=== PATIENT | female | born 1965 | race Caucasian/White ===

== ENCOUNTER 2024-07-11 12:41 | Observation (INO) | payer MEDICARE, MEDICAID, SELFPAY ==
[2024-07-11] VITALS (25 sets, daily range): BP systolic 104–126; BP diastolic 55–72; PULSE 57–75; RESP 16–41; TEMP 36.1–37.1; O2SAT 86–99; BMI 23.7; BMI 22.2
--- NOTE | 2024-07-11 13:03 | DI.RAD.S_ITS ---
PROCEDURE: XR CHEST 1V INDICATIONS: Shortness of breath TECHNIQUE: One view of the chest was acquired. COMPARISON: None. FINDINGS: Surgical changes and devices: None. Lungs and pleura: Lungs are clear. No pleural effusions or pneumothorax. Mediastinum: Mediastinal contours appear normal. Heart size is normal. Bones and chest wall: No suspicious bony lesions. Overlying soft tissues appear unremarkable. IMPRESSION: No acute pulmonary process. Dictated by: Meli Dowling M.D. on 07/11/2024 at 13:41 Approved by: Meli Dowling M.D. on 07/11/2024 at 13:41
--- NOTE | 2024-07-11 13:03 | EKG_ITS ---
[address] [address] Test Date: 2024-07-11 Pat Name: Dwight Stokes Department: Room: Gender: Female Preparation Department Supervisor: MARITA : 1965 Requested By: Order Number: [id number] Reading MD: Jhonatan Hooper MD Measurements Intervals [place] Rate: 61 P: 60 MD: 140 QRS: 50 QRSD: 82 T: 43 QT: 470 QTc: 473 Interpretive Statements Normal sinus rhythm Electronically Signed On 07-11-2024 15:23:06 PDT by Jhonatan Hooper MD
[2024-07-11 13:31] LABS: Add Manual Diff / Slide Review NO; Basophils Absolute Auto 0 /uL (0-100); Basophils Percent Auto 0.5 % (0-2); Eosinophils Absolute Auto 700 /uL (0-450); Hematocrit 39.3 % (36-46); Hemoglobin 13.1 g/dL (12.0-16.0); Lymphocytes Absolute Auto 2100 /uL (1100-4500); Lymphocytes Percent Auto 24.9 % (25-40); Mean Corpuscular HGB Conc 33.3 % (30-36); Mean Corpuscular Hemoglobin 29.1 PG (26-34); Mean Corpuscular Volume 87.4 fL (80-100); Monocytes Absolute Auto 600 /uL (0-900); Monocytes Percent Auto 6.6 % (3-14); Neutrophils Absolute Auto 5100 /uL (1500-7000); Platelet Count 222 X10^3/uL (150-400); Red Blood Cell Count 4.49 X10^6/uL (4.0-5.2); Red Cell Distribution Width 14.6 % (11.6-14.8); White Blood Cell Count 8.4 X10^3/uL (4.5-11.0)
[2024-07-11 13:38] LABS: Prothrombin Time 11.3 SECONDS (9.4-12.5)
[2024-07-11 13:42] LABS: Alanine Aminotransferase 32 IU/L (<35); Albumin Globulin Ratio 1.3 (1.0-2.8); Alkaline Phosphatase 67 U/L (38-126); Aspartate Aminotransferase 46 IU/L (14-36); Bilirubin Total 0.3 mg/dL (0.2-1.3); Blood Urea Nitrogen 16 mg/dL (7-17); Calcium 8.9 mg/dL (8.4-10.2); Carbon Dioxide 33 mmol/L (22-32); Chloride 98 mmol/L (98-107); Estimated Glomerular Filt Rate > 60 mL/min (>60); Globulin 3.1 g/dL (1.7-4.1); Glucose 107 mg/dL (70-100); HEMOLYSIS < 15 (0-50); Lactate (Lactic Acid) 1.6 mmol/L (0.7-2.1); Potassium 3.6 mmol/L (3.4-5.1); Sodium 137 mmol/L (137-145); Total Protein 7.1 g/dL (6.3-8.2)
[2024-07-11 13:57] LABS: NT-proBNP (BNP-Adult 18+) 488 pg/mL (<125); Troponin I 0.023 ng/mL (0.01-0.034)
--- NOTE | 2024-07-11 15:11 | ED.GENADULT ---
HPI - General Adult General Chief complaint: Shortness of Breath/Dyspnea Stated complaint: Low O2 90% RA Time Seen by Provider: 07/11/24 15:10 Source: patient and EMS Mode of arrival: EMS Limitations: no limitations History of Present Illness HPI narrative: 58-year-old female history of substance abuse, tobacco use who presents with a hypoxia from [facility]. Patient's for report lives in [facility] her son found her down and Narcan her x2 she was transported to [facility] and [facility]. Sounds like she was seen there and then discharged. Patient states she has been on methadone she was states she takes it daily she gets it at [facility] like. States she was to use benzos and she occasionally uses meth but denies any recent benzodiazepine use or narcotics. Patient states she has not been told her oxygen has been low in the past. She states she was not told it was low at [facility]. Denies fevers or chills. No chest pain, no shortness of breath. Denies any nausea or vomiting. Denies any GI or urinary symptoms. No swelling of extremities. She notes she was recently had a cold. She states no medications besides methadone. States x3 for surgical history. Describes allergies to Demerol and Vicodin but isn't able to tell me what the allergy is. Does use tobacco regularly denies alcohol, denies substance use but did get Narcan yesterday. Related Data Allergies Allergy/AdvReac Type Severity Reaction Status Date / Time acetaminophen [From Vicodin] Allergy Verified 07/11/24 15:12 hydrocodone [From Vicodin] Allergy Verified 07/11/24 15:12 meperidine [From Demerol] Allergy Verified 07/11/24 15:12 Review of Systems Review of Systems ROS Unobtainable: All systems reviewed & are unremarkable except as noted in HPI and below Patient History Social History household members: significant other alcohol intake: never Smoking Status: Current every day smoker tobacco type: cigarettes Exam Narrative Exam Narrative: GENERAL: Alert and oriented x three, female in mild distress. Patient has a little sleepy on exam. Patient was still in paper scrubs from outside facility. HEENT: Head normocephalic, atraumatic, EOMI, pupils reactive, face symmetric, moist mucous membranes NECK: Supple, full range of motion CARDIOVASCULAR: Regular rate and rhythm without murmurs, rubs or gallops. No JVD. No edema bilateral lower extremities. RESPIRATORY: Breath sounds equal bilaterally, no wheezes rales or rhonchi. ABDOMEN: Soft, nontender. Normoactive bowel sounds all 4 quadrants. No guarding or rebound, rigidity, no mass : No CVA tenderness EXTREMITIES: Normal range of motion, no clubbing noted. Neurovascularly intact NEUROLOGICAL: Cranial nerves II through XII grossly intact. Moving all extremities SKIN: Warm, dry, no petechiae, no rashes or lesions. Initial Vital Signs Initial Vital Signs: Vital Signs Temperature 98.7 F 07/11/24 12:50 Pulse Rate 65 07/11/24 12:50 Respiratory Rate 18 07/11/24 12:50 Blood Pressure 112/59 L 07/11/24 12:50 Pulse Oximetry 98 07/11/24 12:50 Oxygen Delivery Method Nasal Cannula 07/11/24 12:50 Oxygen Flow Rate 2 07/11/24 12:50 Course Orders Ordered: ED Orders 07/11/24 13:03 XR chest 1V Stat EKG-12 Lead Stat Measure peak expiratory flow ONCE RT Consult Eval and Treat NOW 07/11/24 13:13 Complete Blood Count AUTO DIFF Stat Comprehensive Metabolic Panel Stat Lactate (Lactic Acid) Stat NT-proBNP (BNP-Adult 18+) Stat Prothrombin Time INR Stat Troponin I Stat 07/11/24 15:16 CT angio chest PE protocol Stat 07/11/24 15:24 Urinalysis and Microscopic Stat Urine Drug Screen, Rapid Stat 07/11/24 17:28 Respiratory Panel (Film Array) Stat 07/11/24 17:29 ABG [Arterial Blood Gas] STAT Naloxone HCl (Naloxone 0.4 Mg/Ml Vial) 0.2 mg IV Q2MIN PRN PRN Reason: Opiate Reversal Discontinued Medications Ceftriaxone Sodium 1,000 mg/ (Sodium Chloride) 100 mls @ 200 mls/hr IV NOW ONE Stop: 07/11/24 17:29 Last Infusion: 07/11/24 18:11 Dose: Infused Azithromycin 500 mg/ Dextrose 250 mls @ 250 mls/hr IV NOW ONE Stop: 07/11/24 17:29 Vital Signs Vital signs: Vital Signs - 8 hr 07/11/24 12:50 07/11/24 12:59 07/11/24 13:00 Temperature 98.7 F Pulse Rate 65 63 Respiratory Rate 18 28 H Blood Pressure 112/59 L 113/66 Pulse Oximetry 98 95 Oxygen Delivery Method Nasal Cannula Nasal Cannula Oxygen Flow Rate 2 07/11/24 13:00 07/11/24 13:16 07/11/24 13:16 Temperature Pulse Rate 63 62 Respiratory Rate 27 H 28 H Blood Pressure 117/59 L Pulse Oximetry 94 95 Oxygen Delivery Method Oxygen Flow Rate 07/11/24 13:30 07/11/24 13:30 07/11/24 13:45 Temperature Pulse Rate 61 Respiratory Rate 34 H Blood Pressure 123/60 118/59 L Pulse Oximetry 95 Oxygen Delivery Method Nasal Cannula Oxygen Flow Rate 2 07/11/24 13:45 07/11/24 14:00 07/11/24 14:00 Temperature Pulse Rate 63 62 Respiratory Rate 30 H 38 H Blood Pressure 110/56 L Pulse Oximetry 98 94 Oxygen Delivery Method Nasal Cannula Oxygen Flow Rate 2 07/11/24 14:15 07/11/24 14:15 07/11/24 14:30 Temperature Pulse Rate 63 Respiratory Rate 30 H Blood Pressure 106/57 L 104/55 L Pulse Oximetry 96 Oxygen Delivery Method Nasal Cannula Oxygen Flow Rate 1 07/11/24 14:30 07/11/24 14:57 07/11/24 14:57 Temperature Pulse Rate 66 63 Respiratory Rate 28 H 24 Blood Pressure 118/56 L Pulse Oximetry 97 86 L Oxygen Delivery Method Nasal Cannula Room Air Oxygen Flow Rate 1 07/11/24 15:00 07/11/24 15:00 07/11/24 15:15 Temperature Pulse Rate 64 Respiratory Rate 38 H Blood Pressure 114/59 L 117/61 Pulse Oximetry 96 Oxygen Delivery Method Nasal Cannula Oxygen Flow Rate 2 07/11/24 15:15 07/11/24 15:42 07/11/24 15:44 Temperature Pulse Rate 66 68 Respiratory Rate 22 Blood Pressure 111/56 L Pulse Oximetry 98 96 Oxygen Delivery Method Nasal Cannula Oxygen Flow Rate 2 07/11/24 15:44 07/11/24 15:45 07/11/24 15:45 Temperature Pulse Rate 61 60 Respiratory Rate 36 H 41 H Blood Pressure 111/59 L Pulse Oximetry 97 95 Oxygen Delivery Method Nasal Cannula Oxygen Flow Rate 2 07/11/24 16:00 07/11/24 16:00 07/11/24 16:15 Temperature Pulse Rate 58 L Respiratory Rate 23 Blood Pressure 126/70 122/68 Pulse Oximetry 97 Oxygen Delivery Method Nasal Cannula Oxygen Flow Rate 2 07/11/24 16:15 07/11/24 16:30 07/11/24 16:30 Temperature Pulse Rate 58 L 62 Respiratory Rate 16 24 Blood Pressure 124/72 Pulse Oximetry 99 98 Oxygen Delivery Method Oxygen Flow Rate 07/11/24 16:45 07/11/24 16:45 07/11/24 17:00 Temperature Pulse Rate 57 L Respiratory Rate 17 Blood Pressure 118/65 116/64 Pulse Oximetry 96 Oxygen Delivery Method Nasal Cannula Oxygen Flow Rate 2 07/11/24 17:00 07/11/24 17:30 07/11/24 18:00 Temperature Pulse Rate 58 L 75 59 L Respiratory Rate 24 24 31 H Blood Pressure Pulse Oximetry 87 L 89 L 94 Oxygen Delivery Method Room Air Nasal Cannula Nasal Cannula Oxygen Flow Rate 2 2 Medical Decision Making Lab Data 07/11/24 13:13 07/11/24 13:13 Labs: Lab Results 07/11/24 07/11/24 07/11/24 Range/Units 13:13 15:24 15:24 WBC 8.4 (4.5-11.0) X10^3/uL RBC 4.49 (4.0-5.2) X10^6/uL Hgb 13.1 (12.0-16.0) g/dL Hct 39.3 (36-46) % MCV 87.4 (80-100) fL MCH 29.1 (26-34) PG MCHC 33.3 (30-36) % RDW 14.6 (11.6-14.8) % Plt Count 222 (150-400) X10^3/uL Neut % (Auto) 60.0 (50-75) % Lymph % (Auto) 24.9 L (25-40) % [place] % (Auto) 6.6 (3-14) % Eos % (Auto) 8.0 H (2-4) % Baso % (Auto) 0.5 (0-2) % Neut # (Auto) 5100 (9638-3667) /uL Lymph # (Auto) 2100 (3041-4388) /uL Hamb[place] # (Auto) 600 (0-900) /uL Eos # (Auto) 700 H (0-450) /uL Baso # (Auto) 0 (0-100) /uL PT 11.3 (9.4-12.5) SECONDS INR 1.0 (0.9-1.3) ABG Sample Site ABG pH (7.35-7.45) ABG pCO2 (35-45) mmHg ABG pO2 (80-100) mmHg ABG HCO3 (23-27) mmol/L ABG Total CO2 (23-27) mmol/L ABG O2 Saturation (95-100) % ABG Base Excess (-2-3) mmol/L Zachary Test FiO2 % % Sodium 137 (137-145) mmol/L Potassium 3.6 (3.4-5.1) mmol/L Chloride 98 (98-107) mmol/L Carbon Dioxide 33 H (22-32) mmol/L BUN 16 (7-17) mg/dL Creatinine 0.84 (0.52-1.04) mg/dL Estimated GFR > 60 (>60) mL/min BUN/Creatinine Ratio 19.0 (6-22) Glucose 107 H (70-100) mg/dL Lactate 1.6 (0.7-2.1) mmol/L Calcium 8.9 (8.4-10.2) mg/dL Total Bilirubin 0.3 (0.2-1.3) mg/dL AST 46 H (14-36) IU/L ALT 32 (<35) IU/L Alkaline Phosphatase 67 (38-126) U/L Troponin I 0.023 (0.01-0.034) ng/mL NT-Pro-B Natriuret Pep 488 H (<125) pg/mL Total Protein 7.1 (6.3-8.2) g/dL Albumin 4.0 (3.5-5.0) g/dL Globulin 3.1 (1.7-4.1) g/dL Albumin/Globulin Ratio 1.3 (1.0-2.8) Urine Color Yellow Urine Appearance Clear Urine pH 6.0 Normal (4.5-8.0) Ur Specific [place] 1.015 (1.000-1.035) Urine Protein Negative (Negative) Urine Glucose (UA) Negative (Negative) g/dL Urine Ketones Negative (NEGATIVE) Urine Occult Blood Negative (Negative) Urine Nitrate Negative (Negative) Urine Bilirubin Negative (NEGATIVE) Urine Urobilinogen 0.2 (0.2) E.U./dL Ur Leukocyte Esterase Negative (NEGATIVE) Urine RBC 0-1/hpf (0-5/HPF) Urine WBC 0-1/hpf (0-5/HPF) Ur Squamous Epith Cells 5-10 /hpf H (0-5/HPF) Urine Bacteria Few (2-10) H (None) Ur Culture Indicated? Cult not indicated Vol Urine Centrifuged 10ml (spun) U Opiates 300ng/mL cut Positive H (Negative) Ur Oxycodone Screen Negative (Negative) Urine Methadone Screen Positive H (Negative) Ur Barbiturates Screen Negative (Negative) U Tricyclic Antidepress Negative (Negative) Ur Phencyclidine Scrn Negative (Negative) Ur Amphetamines Screen Positive H (Negative) U Methamphetamines Scrn Positive H (Negative) Ur MDMA Scrn (Ecstasy) Negative (Negative) U Benzodiazepines Scrn Negative (Negative) Urine Cocaine Screen Negative (Negative) U Marijuana (THC) Screen Negative (Negative) Urine Specific [place] Normal (Normal) Ur Creatinine Normal (Normal) 07/11/24 Range/Units 17:40 WBC (4.5-11.0) X10^3/uL RBC (4.0-5.2) X10^6/uL Hgb (12.0-16.0) g/dL Hct (36-46) % MCV (80-100) fL MCH (26-34) PG MCHC (30-36) % RDW (11.6-14.8) % Plt Count (150-400) X10^3/uL Neut % (Auto) (50-75) % Lymph % (Auto) (25-40) % Hamb[place] % (Auto) (3-14) % Eos % (Auto) (2-4) % Baso % (Auto) (0-2) % Neut # (Auto) (9118-4286) /uL Lymph # (Auto) (2027-0718) /uL Hamb[place] # (Auto) (0-900) /uL Eos # (Auto) (0-450) /uL Baso # (Auto) (0-100) /uL PT (9.4-12.5) SECONDS INR (0.9-1.3) ABG Sample Site Right radial ABG pH 7.37 (7.35-7.45) ABG pCO2 56.1 H (35-45) mmHg ABG pO2 48 L* (80-100) mmHg ABG HCO3 32 H (23-27) mmol/L ABG Total CO2 32 H (23-27) mmol/L ABG O2 Saturation 81 L* (95-100) % ABG Base Excess 5.3 H (-2-3) mmol/L Zachary Test Positive FiO2 % 21.0 % % Sodium (137-145) mmol/L Potassium (3.4-5.1) mmol/L Chloride (98-107) mmol/L Carbon Dioxide (22-32) mmol/L BUN (7-17) mg/dL Creatinine (0.52-1.04) mg/dL Estimated GFR (>60) mL/min BUN/Creatinine Ratio (6-22) Glucose (70-100) mg/dL Lactate (0.7-2.1) mmol/L Calcium (8.4-10.2) mg/dL Total Bilirubin (0.2-1.3) mg/dL AST (14-36) IU/L ALT (<35) IU/L Alkaline Phosphatase (38-126) U/L Troponin I (0.01-0.034) ng/mL NT-Pro-B Natriuret Pep (<125) pg/mL Total Protein (6.3-8.2) g/dL Albumin (3.5-5.0) g/dL Globulin (1.7-4.1) g/dL Albumin/Globulin Ratio (1.0-2.8) Urine Color Urine Appearance Urine pH (4.5-8.0) Ur Specific [place] (1.000-1.035) Urine Protein (Negative) Urine Glucose (UA) (Negative) g/dL Urine Ketones (NEGATIVE) Urine Occult Blood (Negative) Urine Nitrate (Negative) Urine Bilirubin (NEGATIVE) Urine Urobilinogen (0.2) E.U./dL Ur Leukocyte Esterase (NEGATIVE) Urine RBC (0-5/HPF) Urine WBC (0-5/HPF) Ur Squamous Epith Cells (0-5/HPF) Urine Bacteria (None) Ur Culture Indicated? Vol Urine Centrifuged U Opiates 300ng/mL cut (Negative) Ur Oxycodone Screen (Negative) Urine Methadone Screen (Negative) Ur Barbiturates Screen (Negative) U Tricyclic Antidepress (Negative) Ur Phencyclidine Scrn (Negative) Ur Amphetamines Screen (Negative) U Methamphetamines Scrn (Negative) Ur MDMA Scrn (Ecstasy) (Negative) U Benzodiazepines Scrn (Negative) Urine Cocaine Screen (Negative) U Marijuana (THC) Screen (Negative) Urine Specific [place] (Normal) Ur Creatinine (Normal) ECG Data Attestation: I personally reviewed and interpreted this ECG as follows: Prior ECG tracings: not available for review Interpretation: Sinus rhythm rate of 61 MO 140 QRS 82 QTC of 473, no acute ST changes. No priors available. MDM Narrative Medical decision making narrative: EKG shows no acute change, rate of 61. Labs show normal white count hemoglobin and platelets, INR is negative, CO2 is 33 otherwise appropriate electrolytes glucose is 107 lactate 1.6 AST is 46 otherwise appropriate LFTs troponin 0.023 with a BNP of 488. Chest x-ray shows no acute change. CT chest obtained as patient was reported to be down yesterday could have some potential aspiration pneumonia that has not showed chest x-ray yet. Shows no pulmonary embolism no thoracic aneurysm or gross dissection scattered reticular nodule thickening periphery bilateral lung bases with tree-in-bud appearance concerning for small airway disease follow up infiltrate versus atelectasis at bilateral lung bases no pleural effusion pneumothorax. Mildly enlarged mediastinal hilar nodes which maybe reactive in nature. Mildly enlarged mediastinal hilar lymph nodes which may be reactive in nature. UDS positive for opiates, methadone, amphetamines and methamphetamines. May 5-10 squamous, few bacteria. ABG shows a pH of 7.37, CO2 is 026 PO2 is 48 bicarb is 32 with a FiO2 of 21% Respiratory panel is pending Attempted to obtain records from [facility] Chaudhry has been unsuccessful from yesterday. Patient has a little bit sleepy but she was conversant, she actually got up to use the bathroom. She does note that she was had some recent upper respiratory symptoms. Patient states he has never been told she was hypoxic in the past. Patient awakens very easily. She was very adamant she does not want any Narcan she wakes up very easily do not feel we have to give her any. Did ambulatory pulse ox here in the department patient becomes hypoxic down to 86%. She awakens very easily. Spoke with Dr. Frausto at 5:30 p.m., he was for respiratory panel, ABG, Rocephin azithromycin for potential aspiration pneumonia. Re-contacted Dr. Leblanc regarding ABG. He accepts for observation. Respiratory panel still pending. Discharge Plan Departure Patient Disposition: Admitted as Observation Clinical Impression: Pneumonia, Acute hypoxic respiratory failure Admit Date/Time: 07/11/24 18:01 Admit Provider: Mariusz Frausto
--- NOTE | 2024-07-11 15:16 | DI.CT.S_ITS ---
PROCEDURE: CT ANGIO CHEST PE PROTOCOL INDICATIONS: hypoxia, recent cold/cough TECHNIQUE: After the administration of intravenous contrast, 2 mm thick sections acquired from the pulmonary apices to the posterior costophrenic angles. 3-dimensional maximum intensity projection (MIP) coronal and sagittal reformats were then acquired through the thorax. For radiation dose reduction, the following was used: automated exposure control, adjustment of mA and/or kV according to patient size. COMPARISON: None. FINDINGS: Image quality: Diagnostic. Pulmonary arteries: Pulmonary arteries are normal in size, and demonstrate no intraluminal filling defects to suggest central pulmonary embolism. Lower Neck: No enlarged lymph nodes. Thyroid: No thyroid nodules which require sonographic follow up, per consensus guidelines. Axillae: No enlarged lymph nodes. Chest Wall: Unremarkable. Bones: Unremarkable. Lungs and Pleura: No pneumothorax or pleural effusions. There is biapical scarring. Reticular nodular thickening in periphery of bilateral lung nuñez are seen with mild tree-in-bud appearance concerning for small airway disease. Small infiltrate versus atelectasis in anterolateral aspect of left lingular segment and anterior medial aspect of right middle lobe are seen. No suspicious pulmonary nodule is seen. Heart: Heart size is normal. No pericardial effusion. Thoracic Vessels: No aortic aneurysm. Mediastinum and Bella: Prominent mediastinal and hilar lymph nodes are noted and measures up to 1.2 cm in size in precarinal space. Esophagus: No wall thickening. No significant hiatal hernia. Upper Abdomen: Visualized upper abdomen solid organs and bowel loops appear normal. IMPRESSION: 1. No pulmonary embolus. No thoracic aortic aneurysm or gross dissection. 2. Scattered reticular nodular thickening in periphery of bilateral lung nuñez with tree-in-bud appearance concerning for small airway disease. Small infiltrate versus atelectasis at bilateral lung bases as above. No pleural effusion or pneumothorax. 3. Mildly enlarged mediastinal and hilar lymph nodes which may be reactive in nature. Dictated by: Pedro Vallejo M.D. on 07/11/2024 at 16:24 Approved by: Pedro Vallejo M.D. on 07/11/2024 at 16:33
[2024-07-11 15:38] LABS: Appearance Urine UA CLEAR; Bilirubin Urine UA NEGATIVE (NEGATIVE); Color Urine UA YELLOW; Glucose Urine UA NEGATIVE (Negative); Ketones Urine UA NEGATIVE (NEGATIVE); Leukocyte Esterase Urine UA NEGATIVE (NEGATIVE); Nitrite Urine UA NEGATIVE (Negative); Occult Blood Urine UA NEGATIVE (Negative); Protein Urine UA NEGATIVE (Negative); Specific Gravity Urine UA 1.015 (1.000-1.035); Urobilinogen Urine UA 0.2 E.U./dL (0.2)
[2024-07-11 15:44] LABS: Ur Creatinine Normal (Normal); Ur Specific Gravity Normal (Normal); Urine pH Normal (Normal)
[2024-07-11 15:45] LABS: Urine Amphetamines Positive (Negative); Urine Cocaine Negative (Negative); Urine MDMA Negative (Negative); Urine Methadone Positive (Negative); Urine Methamphetamines Positive (Negative); Urine Opiates Positive (Negative); Urine Phencyclidine Negative (Negative); Urine THC Negative (Negative)
[2024-07-11 15:46] LABS: Urine Barbiturates Negative (Negative); Urine Benzodiazepines Negative (Negative); Urine Oxycodone Negative (Negative); Urine Tricyclic Antidepressant Negative (Negative)
[2024-07-11 15:53] LABS: RBC Urine 0-1/HPF (0-5/HPF); Urine Volume 10mL (spun); WBC Urine 0-1/HPF (0-5/HPF)
[2024-07-11 15:54] LABS: Bacteria Urine Few (2-10); Culture Indicated Urine Cult Not Indicated; Squamous Epithelial Cell Urine 5-10 /HPF (0-5/HPF)
[2024-07-11] MEDS: cefTRIAXone 1,000 MG in SODIUM CHLORIDE 0.9% 100 ML 200 MG IV (17:41)
[2024-07-11 17:49] LABS: Allen Test for ABG Passed? Positive; Base Excess ABG 5.3 mmol/L (-2-3); Blood Gas Collection Site Right Radial; HCO3 ABG 32 mmol/L (23-27); Oxygen Saturation ABG 81 % (95-100); PCO2 ABG 56.1 mmHg (35-45); PO2 ABG 48 mmHg (80-100); TCO2 ABG 32 mmol/L (23-27); pH ABG 7.37 (7.35-7.45)
[2024-07-11 19:10] LABS: Adenovirus Not Detected (Not Detect); B. parapertussis Not Detected (Not Detecte); Bordetella pertussis Not Detected (Not Detect); Chlamydophila pneumoniae Not Detected (Not Detect); Coronavirus 229E Not Detected (Not Detect); Coronavirus HKU1 Not Detected (Not Detect); Coronavirus NL 63 Not Detected (Not Detect); Coronavirus OC43 Detected (Not Detect); Human Metapneumovirus Not Detected (Not Detect); Human Rhinovirus/Enterovirus Not Detected (Not Detect); Influenza A Not Detected (Not Detect); Influenza B Not Detected (Not Detect); Mycoplasma pneumoniae Not Detected (Not Detect); Parainfluenza Virus 1 Not Detected (Not Detect); Parainfluenza Virus 2 Not Detected (Not Detect); Parainfluenza Virus 3 Not Detected (Not Detect); Parainfluenza Virus 4 Not Detected (Not Detect); Respiratory Syncytial Virus Not Detected (Not Detect); SARS- CoV-2 Not Detected (Not Detecte)
[2024-07-11] MEDS: AZITHROMYCIN 500 MG in DEXTROSE 5% IN WATER 250 ML 250 MG IV (19:57)
--- NOTE | 2024-07-11 22:06 | PM.HP.1 ---
History of Present Illness History of Present Illness Date Patient Seen: 07/11/24 Time Patient Seen: 21:30 Chief complaint: Low O2 90% RA Narrative: 58 y/o with PMH of smoking, COPD, polysubstance abuse, on methadone maintenance therapy, presented with generalized weakness, shortness of breath, w/o significant cough or wheezing. ED workup showing Covid pneumonia on CT chest. Hypoxic, requires 2 L of oxygen to maintain saturation in 90-ies. W/o leukocytosis, not septic. Had empiric azithromycin and ceftriaxone in the ED. [facility] Social History household members: significant other Smoking Status: Current every day smoker alcohol intake: never Meds Home Medications and Allergies Home Medications Medication Instructions Recorded Confirmed Type Methadone Intensol 170 mg PO DAILY 07/11/24 07/11/24 History Allergies Allergy/AdvReac Type Severity Reaction Status Date / Time acetaminophen [From Vicodin] Allergy Verified 07/11/24 15:12 hydrocodone [From Vicodin] Allergy Verified 07/11/24 15:12 meperidine [From Demerol] Allergy Verified 07/11/24 15:12 Review of Systems Review of Systems Narrative: General - generalized weakness, fatigued RS - short of breath CVS - w/o chest pain GI - w/o abdominal pain Exam Vital Signs (past 8 hours): - 07/11/24 14:15 07/11/24 14:15 07/11/24 14:30 Temperature Pulse Rate 63 Respiratory Rate 30 H Blood Pressure 106/57 L 104/55 L Pulse Oximetry 96 Oxygen Delivery Method Nasal Cannula Oxygen Flow Rate 1 07/11/24 14:30 07/11/24 14:57 07/11/24 14:57 Temperature Pulse Rate 66 63 Respiratory Rate 28 H 24 Blood Pressure 118/56 L Pulse Oximetry 97 86 L Oxygen Delivery Method Nasal Cannula Room Air Oxygen Flow Rate 1 07/11/24 15:00 07/11/24 15:00 07/11/24 15:15 Temperature Pulse Rate 64 Respiratory Rate 38 H Blood Pressure 114/59 L 117/61 Pulse Oximetry 96 Oxygen Delivery Method Nasal Cannula Oxygen Flow Rate 2 07/11/24 15:15 07/11/24 15:42 07/11/24 15:44 Temperature Pulse Rate 66 68 Respiratory Rate 22 Blood Pressure 111/56 L Pulse Oximetry 98 96 Oxygen Delivery Method Nasal Cannula Oxygen Flow Rate 2 07/11/24 15:44 07/11/24 15:45 07/11/24 15:45 Temperature Pulse Rate 61 60 Respiratory Rate 36 H 41 H Blood Pressure 111/59 L Pulse Oximetry 97 95 Oxygen Delivery Method Nasal Cannula Oxygen Flow Rate 2 07/11/24 16:00 07/11/24 16:00 07/11/24 16:15 Temperature Pulse Rate 58 L Respiratory Rate 23 Blood Pressure 126/70 122/68 Pulse Oximetry 97 Oxygen Delivery Method Nasal Cannula Oxygen Flow Rate 2 07/11/24 16:15 07/11/24 16:30 07/11/24 16:30 Temperature Pulse Rate 58 L 62 Respiratory Rate 16 24 Blood Pressure 124/72 Pulse Oximetry 99 98 Oxygen Delivery Method Oxygen Flow Rate 07/11/24 16:45 07/11/24 16:45 07/11/24 17:00 Temperature Pulse Rate 57 L Respiratory Rate 17 Blood Pressure 118/65 116/64 Pulse Oximetry 96 Oxygen Delivery Method Nasal Cannula Oxygen Flow Rate 2 07/11/24 17:00 07/11/24 17:30 07/11/24 18:00 Temperature Pulse Rate 58 L 75 59 L Respiratory Rate 24 24 31 H Blood Pressure Pulse Oximetry 87 L 89 L 94 Oxygen Delivery Method Room Air Nasal Cannula Nasal Cannula Oxygen Flow Rate 2 2 07/11/24 18:14 07/11/24 18:30 Temperature 97.0 F L Pulse Rate 62 Respiratory Rate 16 Blood Pressure 117/66 Pulse Oximetry 91 97 Oxygen Delivery Method Nasal Cannula Oxygen Flow Rate 2 1.5 Oxygen Delivery Method Nasal Cannula Oxygen Flow Rate 1.5 Narrative Exam Narrative: General - in no distress, appears weak, tired RS - poor airflow b/l, Rt-sided wheezes CVS - RRR Psych - lucid, flat mood / affect Objective ECG Impression: NSR 61, w/o ischemic changes Imaging CT scan - chest: Radiologist's impression: . No pulmonary embolus. No thoracic aortic aneurysm or gross dissection. 2. Scattered reticular nodular thickening in periphery of bilateral lung nuñez with tree-in-bud appearance concerning for small airway disease. Small infiltrate versus atelectasis at bilateral lung bases as above. No pleural effusion or pneumothorax. 3. Mildly enlarged mediastinal and hilar lymph nodes which may be reactive in nature. Chest x-ray: Radiologist's impression: No acute pulmonary process. Labs 07/11/24 13:13 07/11/24 13:13 Labs: Laboratory Results - last 24 hr 07/11/24 07/11/24 07/11/24 13:13 15:24 15:24 WBC 8.4 RBC 4.49 Hgb 13.1 Hct 39.3 MCV 87.4 MCH 29.1 MCHC 33.3 RDW 14.6 Plt Count 222 Neut % (Auto) 60.0 Lymph % (Auto) 24.9 L [place] % (Auto) 6.6 Eos % (Auto) 8.0 H Baso % (Auto) 0.5 Neut # (Auto) 5100 Lymph # (Auto) 2100 [place] # (Auto) 600 Eos # (Auto) 700 H Baso # (Auto) 0 PT 11.3 INR 1.0 ABG Sample Site ABG pH ABG pCO2 ABG pO2 ABG HCO3 ABG Total CO2 ABG O2 Saturation ABG Base Excess Zachary Test FiO2 % Sodium 137 Potassium 3.6 Chloride 98 Carbon Dioxide 33 H BUN 16 Creatinine 0.84 Estimated GFR > 60 BUN/Creatinine Ratio 19.0 Glucose 107 H Lactate 1.6 Calcium 8.9 Total Bilirubin 0.3 AST 46 H ALT 32 Alkaline Phosphatase 67 Troponin I 0.023 NT-Pro-B Natriuret Pep 488 H Total Protein 7.1 Albumin 4.0 Globulin 3.1 Albumin/Globulin Ratio 1.3 Urine Color Yellow Urine Appearance Clear Urine pH 6.0 Normal Ur Specific [place] 1.015 Urine Protein Negative Urine Glucose (UA) Negative Urine Ketones Negative Urine Occult Blood Negative Urine Nitrate Negative Urine Bilirubin Negative Urine Urobilinogen 0.2 Ur Leukocyte Esterase Negative Urine RBC 0-1/hpf Urine WBC 0-1/hpf Ur Squamous Epith Cells 5-10 /hpf H Urine Bacteria Few (2-10) H Ur Culture Indicated? Cult not indicated Vol Urine Centrifuged 10ml (spun) U Opiates 300ng/mL cut Positive H Ur Oxycodone Screen Negative Urine Methadone Screen Positive H Ur Barbiturates Screen Negative U Tricyclic Antidepress Negative Ur Phencyclidine Scrn Negative Ur Amphetamines Screen Positive H U Methamphetamines Scrn Positive H Ur MDMA Scrn (Ecstasy) Negative U Benzodiazepines Scrn Negative Urine Cocaine Screen Negative U Marijuana (THC) Screen Negative Urine Specific [place] Normal Ur Creatinine Normal Chlamy pneumoniae PCR Adenovirus (PCR) B. pertussis DNA (PCR) B.parapertussis DNA PCR Coronavirus OC43 (PCR) Coronavirus HKU1 (PCR) Coronavirus 229E (PCR) SARS-CoV-2 (PCR) Coronavirus NL63 (PCR) Human Metapneumovir PCR Influenza Type A (PCR) Influenza Type B (PCR) M. pneumoniae (PCR) Parainfluenza 1 (PCR) Parainfluenza 2 (PCR) Parainfluenza 3 (PCR) Parainfluenza 4 (PCR) RSV (PCR) Entero/Rhino (PCR) 07/11/24 07/11/24 17:32 17:40 WBC RBC Hgb Hct MCV MCH MCHC RDW Plt Count Neut % (Auto) Lymph % (Auto) [place] % (Auto) Eos % (Auto) Baso % (Auto) Neut # (Auto) Lymph # (Auto) [place] # (Auto) Eos # (Auto) Baso # (Auto) PT INR ABG Sample Site Right radial ABG pH 7.37 ABG pCO2 56.1 H ABG pO2 48 L* ABG HCO3 32 H ABG Total CO2 32 H ABG O2 Saturation 81 L* ABG Base Excess 5.3 H Zachary Test Positive FiO2 % 21.0 % Sodium Potassium Chloride Carbon Dioxide BUN Creatinine Estimated GFR BUN/Creatinine Ratio Glucose Lactate Calcium Total Bilirubin AST ALT Alkaline Phosphatase Troponin I NT-Pro-B Natriuret Pep Total Protein Albumin Globulin Albumin/Globulin Ratio Urine Color Urine Appearance Urine pH Ur Specific [place] Urine Protein Urine Glucose (UA) Urine Ketones Urine Occult Blood Urine Nitrate Urine Bilirubin Urine Urobilinogen Ur Leukocyte Esterase Urine RBC Urine WBC Ur Squamous Epith Cells Urine Bacteria Ur Culture Indicated? Vol Urine Centrifuged U Opiates 300ng/mL cut Ur Oxycodone Screen Urine Methadone Screen Ur Barbiturates Screen U Tricyclic Antidepress Ur Phencyclidine Scrn Ur Amphetamines Screen U Methamphetamines Scrn Ur MDMA Scrn (Ecstasy) U Benzodiazepines Scrn Urine Cocaine Screen U Marijuana (THC) Screen Urine Specific [place] Ur Creatinine Chlamy pneumoniae PCR Not detected Adenovirus (PCR) Not detected B. pertussis DNA (PCR) Not detected B.parapertussis DNA PCR Not detected Coronavirus OC43 (PCR) Detected H Coronavirus HKU1 (PCR) Not detected Coronavirus 229E (PCR) Not detected SARS-CoV-2 (PCR) Not detected Coronavirus NL63 (PCR) Not detected Human Metapneumovir PCR Not detected Influenza Type A (PCR) Not detected Influenza Type B (PCR) Not detected M. pneumoniae (PCR) Not detected Parainfluenza 1 (PCR) Not detected Parainfluenza 2 (PCR) Not detected Parainfluenza 3 (PCR) Not detected Parainfluenza 4 (PCR) Not detected RSV (PCR) Not detected Entero/Rhino (PCR) Not detected Assessment & Plan Assessment and plan (1) Pneumonia due to COVID-19 virus: Status: Acute (2) Acute hypoxic respiratory failure: Status: Acute (3) Polysubstance abuse: Status: Acute Assessment & Plan narrative: Covid PNA / Acute Hypoxemic respiratory Failure - bronchodilator, steroid, oxygen, Mucinex Smoker / polysubstance abuse - nicotine patch - tested positive for methamphetamine - methadone maintenance therapy DVT prophylaxis - Lovenox Patient consented to a real time, audio-video telemedicine visit with electronic stethoscope and RN assisting during the exam. Patient located at [place], [place]. Provider located in [place]. Time-Based Coding :: [TOTAL MINUTES] spent with patient and on the chart (including review of chart, obtaining history, exam, reviewing outside data, placing orders, documenting exam and treatment plan, and counseling patient) on [DATE].
[2024-07-12] VITALS (7 sets, daily range): BP systolic 105–119; BP diastolic 62–64; PULSE 65–85; RESP 16–18; TEMP 35.8–36.2; O2SAT 90–93; BMI 22.2
--- NOTE | 2024-07-12 05:10 | PC.NURSE ---
Patient was admitted on day shift, slept most of the shift. Did not C/O of dyspnea & no SOB noted. 1 liter 02/ NC SPO2 95-97 %, will monitor.
[2024-07-12 06:34] LABS: Add Manual Diff / Slide Review NO; Basophils Absolute Auto 0 /uL (0-100); Basophils Percent Auto 0.3 % (0-2); Eosinophils Absolute Auto 1200 /uL (0-450); Hemoglobin 12.7 g/dL (12.0-16.0); Lymphocytes Absolute Auto 2200 /uL (1100-4500); Lymphocytes Percent Auto 27.7 % (25-40); Mean Corpuscular HGB Conc 33.4 % (30-36); Mean Corpuscular Hemoglobin 29.3 PG (26-34); Mean Corpuscular Volume 87.6 fL (80-100); Monocytes Absolute Auto 400 /uL (0-900); Monocytes Percent Auto 5.2 % (3-14); Neutrophils Absolute Auto 4000 /uL (1500-7000); Neutrophils Percent Auto 50.8 % (50-75); Platelet Count 215 X10^3/uL (150-400); Red Blood Cell Count 4.34 X10^6/uL (4.0-5.2); Red Cell Distribution Width 14.6 % (11.6-14.8); White Blood Cell Count 7.8 X10^3/uL (4.5-11.0)
[2024-07-12 06:48] LABS: BUN Creatinine Ratio 21.4 (6-22); Blood Urea Nitrogen 18 mg/dL (7-17); Calcium 8.9 mg/dL (8.4-10.2); Carbon Dioxide 36 mmol/L (22-32); Chloride 101 mmol/L (98-107); Estimated Glomerular Filt Rate > 60 mL/min (>60); Glucose 82 mg/dL (70-100); HEMOLYSIS < 15 (0-50); Potassium 4.1 mmol/L (3.4-5.1); Sodium 138 mmol/L (137-145)
--- NOTE | 2024-07-12 07:55 | PM.PN.1 ---
Subjective Subjective Interval history: Summary: 58 y/o with PMH of smoking, COPD, polysubstance abuse, on methadone maintenance therapy, presented with generalized weakness, shortness of breath, w/o significant cough or wheezing. ED workup showing Covid pneumonia on CT chest. Hypoxic, requires 2 L of oxygen to maintain saturation in 90-ies. W/o leukocytosis, not septic. Had empiric azithromycin and ceftriaxone in the ED. S: Comfortable on O2, minimal cough. Exam Vital Signs (past 8 hours): - 07/12/24 03:00 Temperature 97 F L Pulse Rate 65 Respiratory Rate 18 Blood Pressure 116/64 Pulse Oximetry 93 Oxygen Flow Rate 2 Oxygen Delivery Method Nasal Cannula Oxygen Flow Rate 2 Narrative Exam Narrative: NAD, alert and oriented. Fluent speech. On O2. Lungs are clear, normal rate and effort. Heart is regular, no murmur gallop or rub. Abdomen is soft, non distended. Extremities are free of edema. Objective Imaging CT scan - chest: Radiologist's impression: 1. No pulmonary embolus. No thoracic aortic aneurysm or gross dissection. 2. Scattered reticular nodular thickening in periphery of bilateral lung nuñez with tree-in-bud appearance concerning for small airway disease. Small infiltrate versus atelectasis at bilateral lung bases as above. No pleural effusion or pneumothorax. 3. Mildly enlarged mediastinal and hilar lymph nodes which may be reactive in nature. Chest x-ray: Radiologist's impression: No acute pulmonary process. Labs 07/12/24 05:50 07/12/24 05:50 Labs: Laboratory Results - last 24 hr 07/11/24 07/11/24 07/11/24 13:13 15:24 15:24 WBC 8.4 RBC 4.49 Hgb 13.1 Hct 39.3 MCV 87.4 MCH 29.1 MCHC 33.3 RDW 14.6 Plt Count 222 Neut % (Auto) 60.0 Lymph % (Auto) 24.9 L [place] % (Auto) 6.6 Eos % (Auto) 8.0 H Baso % (Auto) 0.5 Neut # (Auto) 5100 Lymph # (Auto) 2100 [place] # (Auto) 600 Eos # (Auto) 700 H Baso # (Auto) 0 PT 11.3 INR 1.0 ABG Sample Site ABG pH ABG pCO2 ABG pO2 ABG HCO3 ABG Total CO2 ABG O2 Saturation ABG Base Excess Zachary Test FiO2 % Sodium 137 Potassium 3.6 Chloride 98 Carbon Dioxide 33 H BUN 16 Creatinine 0.84 Estimated GFR > 60 BUN/Creatinine Ratio 19.0 Glucose 107 H Lactate 1.6 Calcium 8.9 Total Bilirubin 0.3 AST 46 H ALT 32 Alkaline Phosphatase 67 Troponin I 0.023 NT-Pro-B Natriuret Pep 488 H Total Protein 7.1 Albumin 4.0 Globulin 3.1 Albumin/Globulin Ratio 1.3 Urine Color Yellow Urine Appearance Clear Urine pH 6.0 Normal Ur Specific [place] 1.015 Urine Protein Negative Urine Glucose (UA) Negative Urine Ketones Negative Urine Occult Blood Negative Urine Nitrate Negative Urine Bilirubin Negative Urine Urobilinogen 0.2 Ur Leukocyte Esterase Negative Urine RBC 0-1/hpf Urine WBC 0-1/hpf Ur Squamous Epith Cells 5-10 /hpf H Urine Bacteria Few (2-10) H Ur Culture Indicated? Cult not indicated Vol Urine Centrifuged 10ml (spun) U Opiates 300ng/mL cut Positive H Ur Oxycodone Screen Negative Urine Methadone Screen Positive H Ur Barbiturates Screen Negative U Tricyclic Antidepress Negative Ur Phencyclidine Scrn Negative Ur Amphetamines Screen Positive H U Methamphetamines Scrn Positive H Ur MDMA Scrn (Ecstasy) Negative U Benzodiazepines Scrn Negative Urine Cocaine Screen Negative U Marijuana (THC) Screen Negative Urine Specific [place] Normal Ur Creatinine Normal Chlamy pneumoniae PCR Adenovirus (PCR) B. pertussis DNA (PCR) B.parapertussis DNA PCR Coronavirus OC43 (PCR) Coronavirus HKU1 (PCR) Coronavirus 229E (PCR) SARS-CoV-2 (PCR) Coronavirus NL63 (PCR) Human Metapneumovir PCR Influenza Type A (PCR) Influenza Type B (PCR) M. pneumoniae (PCR) Parainfluenza 1 (PCR) Parainfluenza 2 (PCR) Parainfluenza 3 (PCR) Parainfluenza 4 (PCR) RSV (PCR) Entero/Rhino (PCR) 07/11/24 07/11/24 07/12/24 17:32 17:40 05:50 WBC 7.8 RBC 4.34 Hgb 12.7 Hct 38.0 MCV 87.6 MCH 29.3 MCHC 33.4 RDW 14.6 Plt Count 215 Neut % (Auto) 50.8 Lymph % (Auto) 27.7 [place] % (Auto) 5.2 Eos % (Auto) 16.0 H Baso % (Auto) 0.3 Neut # (Auto) 4000 Lymph # (Auto) 2200 [place] # (Auto) 400 Eos # (Auto) 1200 H Baso # (Auto) 0 PT INR ABG Sample Site Right radial ABG pH 7.37 ABG pCO2 56.1 H ABG pO2 48 L* ABG HCO3 32 H ABG Total CO2 32 H ABG O2 Saturation 81 L* ABG Base Excess 5.3 H Zachary Test Positive FiO2 % 21.0 % Sodium 138 Potassium 4.1 Chloride 101 Carbon Dioxide 36 H BUN 18 H Creatinine 0.84 Estimated GFR > 60 BUN/Creatinine Ratio 21.4 Glucose 82 Lactate Calcium 8.9 Total Bilirubin AST ALT Alkaline Phosphatase Troponin I NT-Pro-B Natriuret Pep Total Protein Albumin Globulin Albumin/Globulin Ratio Urine Color Urine Appearance Urine pH Ur Specific [place] Urine Protein Urine Glucose (UA) Urine Ketones Urine Occult Blood Urine Nitrate Urine Bilirubin Urine Urobilinogen Ur Leukocyte Esterase Urine RBC Urine WBC Ur Squamous Epith Cells Urine Bacteria Ur Culture Indicated? Vol Urine Centrifuged U Opiates 300ng/mL cut Ur Oxycodone Screen Urine Methadone Screen Ur Barbiturates Screen U Tricyclic Antidepress Ur Phencyclidine Scrn Ur Amphetamines Screen U Methamphetamines Scrn Ur MDMA Scrn (Ecstasy) U Benzodiazepines Scrn Urine Cocaine Screen U Marijuana (THC) Screen Urine Specific [place] Ur Creatinine Chlamy pneumoniae PCR Not detected Adenovirus (PCR) Not detected B. pertussis DNA (PCR) Not detected B.parapertussis DNA PCR Not detected Coronavirus OC43 (PCR) Detected H Coronavirus HKU1 (PCR) Not detected Coronavirus 229E (PCR) Not detected SARS-CoV-2 (PCR) Not detected Coronavirus NL63 (PCR) Not detected Human Metapneumovir PCR Not detected Influenza Type A (PCR) Not detected Influenza Type B (PCR) Not detected M. pneumoniae (PCR) Not detected Parainfluenza 1 (PCR) Not detected Parainfluenza 2 (PCR) Not detected Parainfluenza 3 (PCR) Not detected Parainfluenza 4 (PCR) Not detected RSV (PCR) Not detected Entero/Rhino (PCR) Not detected PFSH Social History household members: significant other Smoking Status: Current every day smoker alcohol intake: never Assessment & Plan Assessment & Plan narrative: 1. Covid pneumonia, present on admission and active. 2. Acute hypoxemic respiratory failure, present on admission and active. - bronchodilator, steroid, oxygen, Mucinex 3. Smoker, present on admission and active. 4. Continuous opiate dependence, present on admission and active. - nicotine patch PLAN: -change to dexamathasone 6 mg IV daily. -wean O2 as able. -continue antibiotics. -chronic Methadone 170 mg daily. IVORY: 07/13. DVT prophylaxis - Lovenox Time-Based Coding :: [TOTAL MINUTES] spent with patient and on the chart (including review of chart, obtaining history, exam, reviewing outside data, placing orders, documenting exam and treatment plan, and counseling patient) on [DATE].
[2024-07-12] MEDS: METHADONE INTENSOL 10 MG/ML ORAL.CONC 170 MG PO (08:36)
[2024-07-12] MEDS: predniSONE 20 MG TABLET 40 MG PO (08:37)
[2024-07-12] MEDS: guaiFENesin ER 600 MG TAB PO ×2 (08:37→20:41)
[2024-07-12] MEDS: SODIUM CHLORIDE 0.9% FLUSH 10 ML IV ×2 (08:37→20:41)
[2024-07-12] MEDS: ENOXAPARIN 40 MG/0.4 ML SYRINGE SUBCUT (08:37)
[2024-07-12] MEDS: ALBUTEROL/IPRATROPIUM 3 ML AMPUL INH ×3 (10:47→19:57)
--- NOTE | 2024-07-12 14:24 | CM.DANOTE ---
Initial DCP Assessment Note Pt is a 58 yo female, resident of [place], presents via EMS from [facility] with complaint of SOB, recent ER visits for same, admitted for management of COVID PNA. Patient admits to Methadone maintenance and occasional meth use. Tox + for meth/amphetamines, methadone and opiates. PCP: Dr Velasco (?) Payer: [facility] Reviewed chart, pt discussed in multidisciplinary rounds this morning. Patient COVID+ and continues to be oxygen dependent today. Abx and steroids continue. IVORY unknown. Patient lives independently in [place] w/SO. No barriers identified at this time to patient's discharge home. Clarify PCP before DC. Patient may benefit from community resources. Patient is already connected with [facility] for TWILA treatment. CM team will plan to follow clinical course closely and perform additional assessment of need at bedside. HERBIE Latham Discharge Planning/Care Management CM Discharge Assessment Start: 07/12/24 14:21 Freq: Status: Active Protocol: Document 07/12/24 14:22 BELLA (Rec: 07/12/24 14:24 BELLA [id number]) Discharge Planning Assessment Assigned Chief Clinical Dietitian HERBIE Costa DPOA/Assigned Designee Name Go Quintanilla Contact Information [phone] Advance Directives? No History Provided By Patient,Medical Record Has Patient been admitted in last 30 No days? Prior Living Arrangements Mobile home Household Members significant other Type of transporation used prior to Relies on Others admit Independent with ADL's Yes Is patient alert and oriented? Yes Caregiver for Another No Barriers to Discharge No Comment Offer community resources and TWILA treatment options if requested.Already connected with [facility]. Discharge Plan Home Transportation Arrangement Friends/family Referrals Initiated None needed
[2024-07-12] MEDS: DEXAMETHASONE 10 MG/ML VIAL 6 MG IV (14:43)
--- NOTE | 2024-07-12 23:54 | PC.NURSE ---
Addendum entered by Cara Carter R.N. 07/13/24 06:17: Has been titrated down to RA and is maintaining sat at 93-94% at rest. Does drop to upper 80's with activity but rebounds after 30 seconds. Original Note: Patient is alert and oriented w/mumbled speech. Breath sounds diminished with scattered expiratory rhonchi most noticeable in right lungs. On oxygen at 2L/min per NC with sat of 94% so decreased to 1L/min; is on continuous oximetry so will continue to monitor and titrate as able. HRR w/telemetry reading of SR w/BBB. BT hypoactive; last BM was 07/09. Is voiding per toilet and denies any dysuria, frequency or urgency. Has been independent with mobility and denies any weakness or unsteadiness. Has abrasion on mid back; Tegaderm applied for protection. Denied any pain. Bilateral calf SCD's applied. Fall risk score is moderate so instructed to call for assistance when getting out of bed if feeling dizzy, lightheaded or unsteady.
[2024-07-13] VITALS: BP 110/50; PULSE 68; RESP 18; TEMP 35.9; O2SAT 95
[2024-07-13 04:00] VITALS: BP 122/65; PULSE 76; RESP 19; TEMP 35.8; O2SAT 91
[2024-07-13 06:00] VITALS: O2SAT 93
[2024-07-13] MEDS: guaiFENesin ER 600 MG TAB PO (08:18)
[2024-07-13] MEDS: DEXAMETHASONE 10 MG/ML VIAL 6 MG IV (08:18)
[2024-07-13] MEDS: ENOXAPARIN 40 MG/0.4 ML SYRINGE SUBCUT (08:19)
[2024-07-13] MEDS: SODIUM CHLORIDE 0.9% FLUSH 10 ML IV (08:19)
[2024-07-13 09:29] VITALS: BP 132/69; PULSE 88; RESP 18; TEMP 36.8; O2SAT 93
--- NOTE | 2024-07-13 09:32 | PC.NURSE ---
Addendum entered by Ofe Ndiaye R.N. 07/13/24 10:39: 1037 Call placed to pharmacy and verbal communication provided to electromedical equipment technician regarding Methadone not being administered. Methadone given to electromedical equipment technician Rommel. Tech and pharmacist to waste medication. Addendum entered by Ofe Ndiaye R.N. 07/13/24 09:53: [id number] Patient accompanied by RN off unit to entrance. Patient previously requesting bus pass however stated, nevermind I dont need it. I just want to go. IV removed and band-aid applied. Telemetry device removed. Patient belongings in possession. Discharged paperwork provided, signed. Patient previously wanting to leave before signing paperwork. Stated, I don't care about that. I just want to leave. Original Note: 729 Report received from nightshift RN. Plan of care discussed. Patient AAO x's 3. Able to GUERRERO. Denies pain, numbness and tingling. Call light within reach and bed in lowest position. [phone] Patient assisted to bathroom. 929 MD at the bedside, to place d/c orders. Patient to take bus to treatment center, refusing Methadone scheduled medication at this time. stated, I will take it at the treatment center. aware.
--- NOTE | 2024-07-13 09:33 | P.DS_ITS ---
History of Present Illness History of Present Illness Chief complaint: Low O2 90% RA Narrative: From H&P: 58 y/o with PMH of smoking, COPD, polysubstance abuse, on methadone maintenance therapy, presented with generalized weakness, shortness of breath, w/o significant cough or wheezing. ED workup showing Covid pneumonia on CT chest. Hypoxic, requires 2 L of oxygen to maintain saturation in 90-ies. W/o leukocytosis, not septic. Had empiric azithromycin and ceftriaxone in the ED. Discharge Providers Provider Date of admission: 07/11/24 18:01 Discharge Date: 07/13/24 Consults: None. Discharge provider: Zachary Carty MD Summary Hospital Course Discharge Diagnosis: 1. Covid pneumonia, present on admission and improved. 2. Acute hypoxemic respiratory failure, present on admission and resolved. 3. Smoker, present on admission and active. 4. Continuous opiate dependence, present on admission and active. Hospital Course: She was admitted with acute pneumonia and hypoxic respiratory failure. She did improve clinically and was able to wean off from oxygen by the morning of July 13. She was treated with IV steroids for hypoxia related to COVID. Status at Discharge Cognitive/behavioral status at discharge: oriented Functional status at discharge: independent ambulation Overall status at discharge: patient is back to baseline Time Spent with Patient Time spent: Greater than 30 minutes Exam Vital Signs (past 8 hours): - 07/13/24 04:00 07/13/24 06:00 07/13/24 07:00 Temperature 96.4 F L Pulse Rate 76 Respiratory Rate 19 Blood Pressure 122/65 Pulse Oximetry 91 93 Oxygen Delivery Method Room Air Oxygen Flow Rate 0 0 Oxygen Delivery Method Room Air Oxygen Flow Rate 0 Narrative Exam Narrative: NAD, alert and oriented. Fluent speech. Lungs are clear, normal rate and effort. Heart is regular, no murmur gallop or rub. Abdomen is soft, non distended. Extremities are free of edema. Objective Imaging Multiple studies:: Radiologist's impression: CT scan - chest: Radiologist's impression: 1. No pulmonary embolus. No thoracic aortic aneurysm or gross dissection. 2. Scattered reticular nodular thickening in periphery of bilateral lung nuñez with tree-in-bud appearance concerning for small airway disease. Small infiltrate versus atelectasis at bilateral lung bases as above. No pleural effusion or pneumothorax. 3. Mildly enlarged mediastinal and hilar lymph nodes which may be reactive in nature. Chest x-ray: Radiologist's impression: No acute pulmonary process. Labs 07/12/24 05:50 07/12/24 05:50 [facility] Social History household members: significant other Smoking Status: Current every day smoker alcohol intake: never Discharge Assessment & Plan Assessment and Plan Assessment: 1. Covid pneumonia, present on admission and improved. 2. Acute hypoxemic respiratory failure, present on admission and resolved. 3. Smoker, present on admission and active. 4. Continuous opiate dependence, present on admission and active. Plan of Treatment: She was able to wean off from oxygen and felt close to her baseline. She requested discharge home so she could resume her outpatient methadone maintenance dosing this morning. She was agreeable to antibiotics for several more days as well as an albuterol MDI and these were sent to her pharmacy in [place]. Discharge Plan Discharge Plan Patient Disposition: Released, Other Provider Discharge Comment: Stable for discharge home, hypoxemia has resolved. Discharge orders & Medications Discharge Orders: Discharge (Order); Ordered 07/13/24 Ordered By: Zachary Carty Prescriptions: New doxycycline hyclate 100 mg capsule 100 mg PO BID Qty: 8 0RF albuterol sulfate 90 mcg/actuation HFA aerosol inhaler 2 puff inhalation Q6H PRN (Reason: shortness of breath or wheezing) Qty: 8.5 2RF Continued Methadone Intensol liquid 170 mg PO DAILY Patient Comments: Dose confirmed with Cora at [facility] 07/12/2024 @ 10:27am - Aster VergaraD Diet/Activity/Treatments Diet: Regular Activity: As tolerated Skin/Wound/Dressing Care Report to your healthcare provider any signs of infection, such as:: chills, fever Visit Report/Discharge Packet Instructions: DI for Pneumonia -- Adult, DI for COVID-19 (Suspected or Confirmed ) Discharge Data Attending Provider: Mariusz Frausto Admit Date/Time: 07/11/24 18:01
--- NOTE | 2024-07-13 10:55 | CM.DPNOTE ---
DC Note Patient has been discharged home today. Patient plans to have a residential driver from [facility] [employer] [place] pick her up. Patient will have her methadone dose once she arrives at [facility]. No needs from this CM team identified by patient, nursing team, or this PNEUMATIC TUBE REPAIRER presently. Patient is at her functional and cognitive baseline. BELLA
== END 2024-07-13 09:45 | disposition home or self-care (01) ==
LOC: ED 15:10 → AC 18:02
PROVIDERS: Internal Medicine; Admitting Provider Internal Medicine; Emergency Provider Emergency Medicine; Referring Provider Emergency Medicine; Visit Provider Internal Medicine
DX: J96.01 Acute respiratory failure with hypoxia (principal); J12.82 Pneumonia due to coronavirus disease 2019; U07.1 COVID-19; F17.210 Nicotine dependence, cigarettes, uncomplicated; J44.9 Chronic obstructive pulmonary disease, unspecified; F15.10 Other stimulant abuse, uncomplicated; F11.20 Opioid dependence, uncomplicated
CPT/HCPCS: 36415; 36600; 71045; 71275; 80048; 80053; 80305; 81001; 82805; 83605; 83880; 84484; 85025; 85610; 87633; 93005; 93010; 94640; 94762; 96365; 96367; 96372; 96375; 96376; 99285; G0378; J0696; J1100; J1650; J2310; Q9967